=== PATIENT | male | born 1975 | race Caucasian/White ===

== ENCOUNTER 2019-12-10 01:33 | Observation (INO) | payer OTHER ==
[~2019-12-10] VITALS: Ht 177.8 cm; Wt 99.8 kg
[2019-12-10 01:45] VITALS: BP 124/68
[2019-12-10 02:13] LABS: HEMATOCRIT 42.4 % (42.0-52.0); HEMOGLOBIN 13.9 gm/dL (14.0-18.0); MCH 29.6 pg (26.0-34.0); MCHC 32.8 g/dL (28.0-37.0); MPV 7.8 fl. (7.2-11.1); RBC 4.71 mil/uL (4.50-6.00); RDW-CV 14.1 % (10.5-14.5); WBC 8.6 thou/uL (4.0-11.0)
[2019-12-10 02:19] LABS: CALCIUM 8.6 mg/dL (8.5-10.1); CREATININE 1.5 mg/dL (0.6-1.3); POTASSIUM 3.8 mmol/L (3.5-5.1)
[2019-12-10 02:22] LABS: ALBUMIN 3.8 g/dL (3.4-5.0); TOTAL BILIRUBIN 0.7 mg/dL (<0.1-1.0); TOTAL PROTEIN 7.4 g/dL (6.4-8.2)
[2019-12-10 05:32] VITALS: BP 133/90
[2019-12-10 08:30] VITALS: BP 133/90
--- NOTE | 2019-12-10 08:46 | NUR ---
PT ELOPED WITH IV IN PLACE SECURITY AND BSPD NOTIFIED.
--- NOTE | 2019-12-10 11:34 | EKG ---
[place] [address] ELECTROCARDIOGRAM REPORT Name: SRUTHI DUNN Room: [address]#: [id number] Admission: 12/10/19 Attend Phys: Ariel Wheatley, Discharge: 12/10/19 Date of : 79 Date of Service: 12/10/19 0228 Report #: [id number] THIS REPORT FOR: //name// [facility] ED Test Date: 2019-12-10 Test Time: 02:28:36 Pat Name: SRUTHI DUNN Department: Room: [facility] Gender: M Slimer: [facility] : 1975 Requested By: Matias Singleton Order Number: [id number] MD: Nils Go Measurements Intervals [place] Rate: 83 P: 57 MN: 156 QRS: 32 QRSD: 118 T: 37 QT: 372 QTc: 437 Interpretive Statements Sinus rhythm Incomplete right bundle branch block No previous ECG available for comparison Electronically Signed On 12-10-2019 11:34:44 NURSING STAFF DEVELOPMENT COORDINATOR by Nils Go [email or web address] <ELECTRONICALLY SIGNED> By: Nils Go MD, [facility] 12/10/19 1134 Nils Go MD, [facility] /EPI
== END 2019-12-10 08:35 | disposition left against medical advice (07) ==
LOC: M.ERS 01:33 → M.TBA-ER 04:47
PROVIDERS: Emergency Medicine Emergency Medical Services; ADMIT Internal Medicine; ATTEND Internal Medicine
DX: S20.219A Contusion of unspecified front wall of thorax, initial encounter (principal); R04.2 Hemoptysis; X58.XXXA Exposure to other specified factors, initial encounter; Y93.89 Activity, other specified; Y92.89 Other specified places as the place of occurrence of the external cause; Z87.891 Personal history of nicotine dependence; Z79.899 Other long term (current) drug therapy

== ENCOUNTER 2020-10-18 23:22 | Emergency (ER) | payer OTHER ==
[~2020-10-18] VITALS: Ht 177.8 cm; Wt 104.3 kg
[2020-10-18 23:59] LABS: URINE BLOOD NEGATIVE (Negative); URINE CLARITY CLEAR; URINE COLOR DARK YELLOW; URINE GLUCOSE-RANDOM NEGATIVE (Negative); URINE KETONES NEGATIVE (Negative); URINE LEUKOCYTES NEGATIVE (Negative); URINE NITRITE NEGATIVE (Negative); URINE PROTEIN NEGATIVE (Negative); URINE SPECIFIC GRAVITY >= 1.030 (1.005-1.030)
[2020-10-19] LABS: HEMATOCRIT 42.5 % (42.0-52.0); MCH 27.7 pg (26.0-34.0); MCV 83.9 fL (80.0-100.0); MPV 8.2 fl. (7.2-11.1); RBC 5.07 mil/uL (4.50-6.00); RDW-CV 15.7 % (10.5-14.5); WBC 7.7 thou/uL (4.0-11.0)
[2020-10-19] LABS: URINE BILIRUBIN 1+ (Negative)
[2020-10-19 00:02] LABS: ICTOTEST (BILI CONFIRMATORY) Positive (Negative)
[2020-10-19 00:07] LABS: AMP/METHAMP POSITIVE (Negative); BARBITURATES Negative (Negative); BENZODIAZEPINES Negative (Negative); COCAINE Negative (Negative); METHADONE Negative (Negative); OPIATES Negative (Negative); PCP Negative (Negative); THC POSITIVE (Negative)
[2020-10-19 00:08] LABS: CALCIUM 8.9 mg/dL (8.5-10.1); CREATININE 1.1 mg/dL (0.6-1.3); POTASSIUM 3.7 mmol/L (3.5-5.1)
[2020-10-19 00:13] LABS: ALBUMIN 4.2 g/dL (3.4-5.0); TOTAL BILIRUBIN 0.9 mg/dL (<0.1-1.0); TOTAL PROTEIN 7.7 g/dL (6.4-8.2)
[2020-10-19 00:25] LABS: ALCOHOL < 10 mg/dL (<10); SALICYLATE < 2.8 mg/dL (2.8-20.0)
[2020-10-19 00:29] LABS: ACETAMINOPHEN < 2 ug/mL (10-30)
[2020-10-19 01:24] VITALS: BP 147/101
== END 2020-10-19 01:24 | disposition home or self-care (01) ==
LOC: M.ERS 23:22
PROVIDERS: Personal Emergency Response Attendant
DX: F91.9 Conduct disorder, unspecified (principal); Z20.822 Contact with and (suspected) exposure to COVID-19; F15.129 Other stimulant abuse with intoxication, unspecified; R45.851 Suicidal ideations; F17.210 Nicotine dependence, cigarettes, uncomplicated